=== PATIENT | female | born 1965 | race Caucasian/White ===

== ENCOUNTER 2017-02-02 16:02 | Emergency (ER) | payer OTHER ==
[~2017-02-02] VITALS: Ht 177.8 cm; Wt 102.5 kg
[2017-02-02 16:08] VITALS: BP 187/102; PULSE 98; RESP 17; TEMP 98.6; O2SAT 97
[2017-02-02] MEDS ORDERED: PANT40TA3 PO (16:36)
[2017-02-02] MEDS ORDERED: NEUR300C PO (16:36)
[2017-02-02] MEDS ORDERED: VERA80TA PO (16:36)
[2017-02-02] MEDS ORDERED: BUPR150XL PO (16:36)
[2017-02-02] MEDS ORDERED: PERC5TAB12 PO (16:36)
[2017-02-02] MEDS ORDERED: IMIT100T PO (16:36)
[2017-02-02] MEDS ORDERED: CONC54TA4 PO (16:36)
[2017-02-02] MEDS ORDERED: ALPR0.25 PO (16:36)
[2017-02-02] MEDS ORDERED: AMBI5TAB PO (16:36)
[2017-02-02] MEDS ORDERED: BENZ1CAP8 PO (16:36)
[2017-02-02] MEDS ORDERED: SODIUM CHLOR 0.9% 1000 ML INJ 1,000 ML IV SCH (16:44)
--- NOTE | 2017-02-02 16:44 | PD ---
HPI Chief Complaint: Medical Clearance Time Seen by Provider: 16:44 Travel History International Travel<30 days: No Contact w/Intl Traveler<30days: No Traveled to known affect area: No History of Present Illness HPI 51-year-old female presents emergency Department with complaint of left lower back pain that started about 4-1/2-5 hours ago. Reports urinary frequency, dysuria, urgency, hesitancy. Denies hematuria. Denies fever, abdominal pain. Reports nausea without vomiting. Denies history of kidney stones. Has taken Percocet for symptom management. Allergies to morphine. Symptoms are moderate in severity. Has no other medical complaints. No other modifying factors or associated signs and symptoms. PFSH Past Medical History Hx Anticoagulant Therapy: No Anxiety: Yes Cardiovascular Problems: No Chemotherapy: No Cerebrovascular Accident: No Diabetes: No Hypertension: Yes Insomnia: Yes Respiratory: No Influenza Vaccination: No ?: Not Past Surgical History Abdominal Surgery: Yes (gastric bypass 2009 ) Hysterectomy: Yes Social History Alcohol Use: No Tobacco Use: No Substance Use: No Allergies-Medications (Allergen,Severity, Reaction): Coded Allergies: morphine (Verified Allergy, Severe, RASH, 02/02/17) Reported Meds & Prescriptions Reported Meds & Active Scripts Active Reported Ambien (Zolpidem Tartrate) 5 Mg Tab 5-10 Mg PO HS PRN Alprazolam 0.25 Mg Tab 0.25 Mg PO Q6H PRN Percocet (Oxycodone-Acetaminophen) 5-325 mg Tab 1 Tab PO Q8HR PRN Benzonatate 100 Mg Cap 200 Mg PO TID PRN Imitrex (Sumatriptan Succinate) 100 Mg Tab 100 Mg PO ONCE PRN If a satisfactory response has not been obtained at 2 hours, a second dose may be administered Verapamil (Verapamil HCl) 80 Mg Tab 80 Mg PO BID Concerta (Methylphenidate HCl) 54 Mg Moise 54 Mg PO DAILY Pantoprazole (Pantoprazole Sodium) 40 Mg Tab 40 Mg PO BID Neurontin (Gabapentin) 300 Mg Cap 300 Mg PO TID Wellbutrin Xl 24 HR (Bupropion HCl) 150 Mg Tab 450 Mg PO DAILY Review of Systems Except as stated in HPI: all other systems reviewed are Neg Physical Exam Narrative GENERAL: Well-nourished, well-developed female patient, in no acute distress; afebrile, nontoxic-appearing SKIN: Warm and dry. HEAD: Atraumatic. Normocephalic. EYES: Pupils equal and round. No scleral icterus. No injection or drainage. ENT: Mucosa pink and moist. NECK: Trachea midline. CARDIOVASCULAR: Regular rate. RESPIRATORY: No accessory muscle use. GASTROINTESTINAL: Abdomen soft, non-tender, nondistended. Hepatic and splenic margins not palpable. Bowel sounds are active 4 quadrants. Bladder nontender and nondistended. MUSCULOSKELETAL: No obvious deformities. No clubbing. No cyanosis. No edema. BACK: Left CVA tenderness NEUROLOGICAL: Awake and alert. Oriented 3. No obvious cranial nerve deficits. Motor grossly within normal limits. Normal speech. Moves all extremities. 5/5 strength to all extremities. PSYCHIATRIC: Appropriate mood and affect; insight and judgment normal. Data Data Last Documented VS Vital Signs Date Time Temp Pulse Resp B/P (MAP) Pulse Ox O2 Delivery O2 Flow Rate FiO2 02/02/17 18:27 98.5 92 18 188/93 (124) 100 Room Air Orders Orders Urinalysis - C+S If Indicated (02/02/17 16:44) Iv Access Insert/Monitor (02/02/17 16:44) Ondansetron Inj (Zofran Inj) (02/02/17 16:45) Sodium Chlor 0.9% 1000 Ml Inj (Ns 1000 M (02/02/17 16:44) Sodium Chloride 0.9% Flush (Ns Flush) (02/02/17 16:45) Ketorolac Inj (Toradol Inj) (02/02/17 16:45) Acetamin-Hydrocod 325-10 Mg ([place] 10-32 (02/02/17 17:30) Complete Blood Count With Diff (02/02/17 17:44) Comprehensive Metabolic Panel (02/02/17 17:44) Lipase (02/02/17 17:44) Ct Abd/Pel W/O Iv Contrast (02/02/17 17:44) Labs Laboratory Tests Test 02/02/17 16:55 02/02/17 17:58 Urine Color YELLOW Urine Turbidity HAZY Urine pH 5.0 Urine Specific [place] 1.025 Urine Protein NEG mg/dL Urine Glucose (UA) NEG mg/dL Urine Ketones NEG mg/dL Urine Occult Blood MOD Urine Nitrite NEG Urine Bilirubin NEG Urine Urobilinogen LESS THAN 2.0 MG/DL Urine Leukocyte Esterase SMALL Urine RBC 61 /hpf Urine WBC 3 /hpf Urine Squamous Epithelial Cells <1 /hpf Urine Amorphous Sediment RARE Urine Bacteria RARE /hpf Urine Hyaline Casts 10 /lpf Urine Mucus FEW /lpf Microscopic Urinalysis Comment CULT NOT INDICATED White Blood Count 12.0 TH/MM3 Red Blood Count 4.48 MIL/MM3 Hemoglobin 13.6 GM/DL Hematocrit 40.4 % Mean Corpuscular Volume 90.2 FL Mean Corpuscular Hemoglobin 30.4 PG Mean Corpuscular Hemoglobin Concent 33.7 % Red Cell Distribution Width 14.3 % Platelet Count 204 TH/MM3 Mean Platelet Volume 9.2 FL Neutrophils (%) (Auto) 88.3 % Lymphocytes (%) (Auto) 6.1 % Monocytes (%) (Auto) 4.9 % Eosinophils (%) (Auto) 0.5 % Basophils (%) (Auto) 0.2 % Neutrophils # (Auto) 10.6 TH/MM3 Lymphocytes # (Auto) 0.7 TH/MM3 Monocytes # (Auto) 0.6 TH/MM3 Eosinophils # (Auto) 0.1 TH/MM3 Basophils # (Auto) 0.0 TH/MM3 CBC Comment DIFF FINAL Differential Comment MDM Medical Decision Making Medical Screen Exam Complete: Yes Emergency Medical Condition: Yes Medical Record Reviewed: Yes Differential Diagnosis UTI, pyelonephritis, nephrolithiasis Narrative Course 51-year-old female with left CVA tenderness and urinary symptoms. Patient is afebrile and nontoxic-appearing. Denies fever, vomiting. IV site obtained. Urinalysis, Toradol, Zofran ordered. 0: Patient is complaining of continued pain. Lortab ordered. 1743: Urinalysis with no significant findings for clinical complaint. CBC, CMP , lipase, CT abdomen ordered. 1903: CT scan concludes: Acute obstructive uropathy of the left distal ureter secondary to a 5 mm calcified calculus at the left ureterovesical junction resulting in moderate uretero pelvicaliectasis on the left and perinephric streakiness. 2. 6 mm calcified lower pole nonobstructing left renal calculus. 3. Hepatomegaly. 1909: Report given to Joey Barrett PA-C. See his note for patient final disposition. Referrals: Primary Care Physician Bethany Naranjo Feb 02, 2017 16:44
[2017-02-02] MEDS ORDERED: KETOROLAC TROMETHAMINE 30 MG/ML (IVP) VIAL IVP ONE (16:45)
[2017-02-02] MEDS ORDERED: SODIUM CHLORIDE 0.9% FLUSH 10 ML FLUSH IV FLUSH PRN (16:45)
[2017-02-02] MEDS ORDERED: ONDANSETRON HCL 4 MG/2 ML VIAL IVP ONE (16:45)
[2017-02-02] MEDS ORDERED: SODIUM CHLOR 0.9% 1000 ML INJ 1,000 ML IV ONE ×2 (17:30→19:30)
[2017-02-02] MEDS ORDERED: ACETAMINOPHEN/HYDROcodone 325 MG/10 MG TAB PO ONE (17:30)
[2017-02-02 17:32] LABS: BACTERIA, URINE RARE /hpf; BLOOD, URINE MOD (NEG); COMMENT (UR) CULT NOT INDICATED; CULTURE IF INDICATED CULT NOT INDICATED; GLUCOSE,URINE NEG (NEG); HYALINE CAST, URINE 10 /lpf (RARE); KETONE, URINE NEG (NEG); MUCUS URINE FEW /lpf (OCC); NITRITE,URINE NEG (NEG); SQUAMOUS EPITHELIAL CELL URINE <1 /hpf (0-5); URINE COLOR YELLOW (YELLW/STRAW)
[2017-02-02 18:27] VITALS: BP 188/93; PULSE 92; RESP 18; TEMP 98.5; O2SAT 100
[2017-02-02 18:40] LABS: AUTOMATED NEUTROPHIL # 10.6 TH/MM3 (1.8-7.7); BASOPHIL % 0.2 % (0.0-2.0); EOSINOPHIL # 0.1 TH/MM3 (0-0.4); EOSINOPHIL % 0.5 % (0.0-4.0); HEMATOCRIT 40.4 % (35.0-46.0); HEMO FLAGS DIFF FINAL; LYMPH % 6.1 % (9.0-44.0); LYMPHOCYTE # 0.7 TH/MM3 (1.0-4.8); MEAN CELL VOLUME 90.2 FL (80.0-100.0); MEAN CORPUSCULAR HEMOGLOBIN 30.4 PG (27.0-34.0); MEAN CORPUSCULAR HGB CONC 33.7 % (32.0-36.0); MONO % 4.9 % (0.0-8.0); NEUT % 88.3 % (16.0-70.0); PLATELET COUNT 204 TH/MM3 (150-450); RED BLOOD COUNT 4.48 MIL/MM3 (4.00-5.30); RED CELL DISTRIBUTION WIDTH 14.3 % (11.6-17.2)
--- NOTE | 2017-02-02 18:48 | RADRPT ---
EXAM DATE/TIME: 02/02/2017 18:26 [place] COMPARISON: No previous studies available for comparison. INDICATIONS : Left flank pain ORAL CONTRAST: No oral contrast ingested. RADIATION DOSE: 13.44 CTDIvol (mGy) MEDICAL HISTORY : Hypertension. SURGICAL HISTORY : Gastric bypass. Hysterectomy. ENCOUNTER: Initial ACUITY: 1 day PAIN SCALE: 9/10 LOCATION: Left flank TECHNIQUE: Volumetric scanning of the abdomen and pelvis was performed. Using automated exposure control and ad justment of the mA and/or kV according to patient size, radiation dose was kept as low as reasonably achievable to obtain optimal diagnostic quality images. DICOM format image data is available electro nically for review and comparison. FINDINGS: There is acute obstructive uropathy of the left distal ureter secondary to a 5 mm calcified calculus at the left ureterovesical junction resulting in moderate uretero pelvicaliectasis. Perinephric stre aking is also noted on the left. There is a 6 mm calcified nonobstructing lower pole left renal calc ulus also. Evaluation of the solid organs of the abdomen is limited by the lack of intravenous contr ast. The liver is enlarged. Patient is status post cholecystectomy. Gastric surgery is noted consi stent with gastric bypass procedure. CONCLUSION: 1. Acute obstructive uropathy of the left distal ureter secondary to a 5 mm calcified calculus at th e left ureterovesical junction resulting in moderate uretero pelvicaliectasis on the left and perinep hric streakiness. 2. 6 mm calcified lower pole nonobstructing left renal calculus. 3. Hepatomegaly. Hugo Reza MD on February 02, 2017 at 18:36 Board Certified Radiologist. This report was verified electronically.
[2017-02-02 19:13] LABS: ALT (GPT) 19 U/L (10-53)
[2017-02-02 19:16] LABS: ALKALINE PHOSPHATASE 109 U/L (45-117); TOTAL BILIRUBIN ADULT 0.3 MG/DL (0.2-1.0)
[2017-02-02 19:27] LABS: ANION GAP 8 MEQ/L (5-15); AST (GOT) 21 U/L (15-37); BICARBONATE 23.2 MEQ/L (21.0-32.0); BLOOD UREA NITROGEN 17 MG/DL (7-18); CHLORIDE 108 MEQ/L (98-107); GLOMERULAR FILTRATION RATE 57 ML/MIN (>89); POTASSIUM 3.9 MEQ/L (3.5-5.1); SODIUM (NA) 139 MEQ/L (136-145)
--- NOTE | 2017-02-02 19:29 | PD ---
Physical Exam Date Seen by Provider: Feb 02, 2017 Time Seen by Provider: 19:28 Narrative GENERAL: This is a well-nourished, well-developed patient, in no apparent distress. SKIN: No rashes, ecchymoses or lesions. Warm and dry. HEAD: Atraumatic. Normocephalic. EYES: PERRL, EOMI, no discharge or injection. No scleral icterus. EARS: Clear NOSE: Nasal turbinates appear normal. THROAT: Mucosa pink and moist. Airway patent. NECK: Trachea midline. supple, moves head freely. LUNGS: Clear to auscultation. CV: Regular in rhythm. ABDOMEN: Soft nontender. EXT: No clubbing cyanosis or edema. Data Data Last Documented VS Vital Signs Date Time Temp Pulse Resp B/P (MAP) Pulse Ox O2 Delivery O2 Flow Rate FiO2 02/02/17 18:27 98.5 92 18 188/93 (124) 100 Room Air Orders Orders Urinalysis - C+S If Indicated (02/02/17 16:44) Iv Access Insert/Monitor (02/02/17 16:44) Ondansetron Inj (Zofran Inj) (02/02/17 16:45) Sodium Chlor 0.9% 1000 Ml Inj (Ns 1000 M (02/02/17 16:44) Sodium Chloride 0.9% Flush (Ns Flush) (02/02/17 16:45) Ketorolac Inj (Toradol Inj) (02/02/17 16:45) Acetamin-Hydrocod 325-10 Mg ([place] 10-32 (02/02/17 17:30) Complete Blood Count With Diff (02/02/17 17:44) Comprehensive Metabolic Panel (02/02/17 17:44) Lipase (02/02/17 17:44) Ct Abd/Pel W/O Iv Contrast (02/02/17 17:44) Sodium Chlor 0.9% 1000 Ml Inj (Ns 1000 M (02/02/17 19:30) Metoclopramide Inj (Reglan Inj) (02/02/17 19:30) Diphenhydramine Inj (Benadryl Inj) (02/02/17 19:30) Hydromorphone Pf Inj (Dilaudid Pf Inj) (02/02/17 19:30) Labs Laboratory Tests Test 02/02/17 16:55 02/02/17 17:58 Urine Color YELLOW Urine Turbidity HAZY Urine pH 5.0 Urine Specific [place] 1.025 Urine Protein NEG mg/dL Urine Glucose (UA) NEG mg/dL Urine Ketones NEG mg/dL Urine Occult Blood MOD Urine Nitrite NEG Urine Bilirubin NEG Urine Urobilinogen LESS THAN 2.0 MG/DL Urine Leukocyte Esterase SMALL Urine RBC 61 /hpf Urine WBC 3 /hpf Urine Squamous Epithelial Cells <1 /hpf Urine Amorphous Sediment RARE Urine Bacteria RARE /hpf Urine Hyaline Casts 10 /lpf Urine Mucus FEW /lpf Microscopic Urinalysis Comment CULT NOT INDICATED White Blood Count 12.0 TH/MM3 Red Blood Count 4.48 MIL/MM3 Hemoglobin 13.6 GM/DL Hematocrit 40.4 % Mean Corpuscular Volume 90.2 FL Mean Corpuscular Hemoglobin 30.4 PG Mean Corpuscular Hemoglobin Concent 33.7 % Red Cell Distribution Width 14.3 % Platelet Count 204 TH/MM3 Mean Platelet Volume 9.2 FL Neutrophils (%) (Auto) 88.3 % Lymphocytes (%) (Auto) 6.1 % Monocytes (%) (Auto) 4.9 % Eosinophils (%) (Auto) 0.5 % Basophils (%) (Auto) 0.2 % Neutrophils # (Auto) 10.6 TH/MM3 Lymphocytes # (Auto) 0.7 TH/MM3 Monocytes # (Auto) 0.6 TH/MM3 Eosinophils # (Auto) 0.1 TH/MM3 Basophils # (Auto) 0.0 TH/MM3 CBC Comment DIFF FINAL Differential Comment Blood Urea Nitrogen 17 MG/DL Creatinine 1.02 MG/DL Random Glucose 112 MG/DL Total Protein 6.9 GM/DL Albumin 3.9 GM/DL Calcium Level 8.9 MG/DL Alkaline Phosphatase 109 U/L Aspartate Amino Transf (AST/SGOT) 21 U/L Alanine Aminotransferase (ALT/SGPT) 19 U/L Total Bilirubin 0.3 MG/DL Sodium Level 139 MEQ/L Potassium Level 3.9 MEQ/L Chloride Level 108 MEQ/L Carbon Dioxide Level 23.2 MEQ/L Anion Gap 8 MEQ/L Estimat Glomerular Filtration Rate 57 ML/MIN Lipase 59 U/L [facility] Medical Record Reviewed: Yes Supervised Visit with MAJO: Yes Interpretation(s) Last 24 hours Impressions Abdomen/Pelvis CT 02/02/17 8398 Signed Impressions: Service Date/Time: Thursday, February 02, 2017 18:26 - CONCLUSION: 1. Acute obstructive uropathy of the left distal ureter secondary to a 5 mm calcified calculus at the left ureterovesical junction resulting in moderate uretero pelvicaliectasis on the left and perinephric streakiness. 2. 6 mm calcified lower pole nonobstructing left renal calculus. 3. Hepatomegaly. Hugo Reza MD Differential Diagnosis . Narrative Course Patient has a obstructive uropathy on the left side with a 5 mm UVJ stone. Patient still complains of pain and nausea. She is given an additional milligram of Dilaudid, Benadryl 25 mg and Reglan 10 mg IV. She is given a second liter normal saline. The patient has had good results with her second round of medications. She states her pain is completely resolved. She states that she has Percocet at home. She normally takes15 mg tablet up to 4 times. She states that she really only takes it twice a day. She does have her pain medication with her. She is staying here with her was a patient here at the hospital. The patient is encouraged to take up to 2 tablets every 4-6 hours as needed for pain. She is given additional prescription for Flomax and Zofran. This is left urolithiasis, 5 mm kidney stone. Diagnosis Primary Impression: left ureterolithiasis Referrals: Som Mayes MD 3 days Primary Care Physician Additional Instruction: Rest. Increase fluids. May take 1-2 Percocet every 4-6 hours as needed for pain. Zofran for nausea. Flomax daily. Follow-up with urology in the next 2-3 days. Return to the ER if any problems. Med/Other Pt SpecificInfo: Prescription(s) given Scripts Ondansetron Odt (Zofran Odt) 4 Mg Tab 4 MG SL Q6HR Y for Nausea/Vomiting, #14 TAB 0 Refills Prov: Tao Diaz MD 02/02/17 Tamsulosin (Flomax) 0.4 Mg Cap 0.4 MG PO HS for Manage Prostate Problems, #10 CAP 0 Refills Prov: Tao Diaz MD 02/02/17 Disposition: 01 DISCHARGE HOME Condition: Stable Joey Barrett Feb 02, 2017 19:29
[2017-02-02] MEDS ORDERED: HYDROmorphone HCL PF 1 MG/ML VIAL IV PUSH ONE (19:30)
[2017-02-02] MEDS ORDERED: METOCLOPRAMIDE HCL 10 MG/2 ML VIAL IV PUSH ONE (19:30)
[2017-02-02] MEDS ORDERED: diphenhydrAMINE HCL 50 MG/ML VIAL IV PUSH ONE (19:30)
[2017-02-02] MEDS ORDERED: TAMS5CAP PO (20:23)
[2017-02-02] MEDS ORDERED: ZOFR4TAB3 SL (20:23)
== END 2017-02-02 21:18 | disposition home or self-care (01) ==
LOC: NEPD 16:02
DX: N20.1 Calculus of ureter (principal); R11.0 Nausea; I10 Essential (primary) hypertension; Z86.59 Personal history of other mental and behavioral disorders
CPT/HCPCS: 74176; 80053; 81001; 83690; 85025; 96361; 96374; 96375; 99285; J1170; J1200; J1885; J2405; J2765; J7030